=== PATIENT | female | born 1955 | race Two or more races ===

== ENCOUNTER 2016-05-22 06:28 | Day surgery (SDC) | END 2016-05-23 17:28 | disposition home or self-care (01) | DX: C50.912 Malignant neoplasm of unspecified site of left female breast (principal); I10 Essential (primary) hypertension; Z92.21 Personal history of antineoplastic chemotherapy | CPT/HCPCS: 19301; 38525; 71010; 80048; 85025; 85610; 85730; 88307; 93005; J0330; J0690; J2001; J2270; J2405; J2710; J3010; J3480; Z7512; Z7610 ==